=== PATIENT | male | born 1980 | race African-American/Black ===

== ENCOUNTER 2017-12-09 10:35 | Emergency (ER) | payer BC ==
[~2017-12-09] VITALS: Ht 190.5 cm; Wt 99.2 kg
[~2017-12-09 10:35] MED LIST: MOTRIN600 MG PO
[2017-12-09] MEDS ORDERED: KEFLEX500 MG PO (11:41)
[2017-12-09] MEDS ORDERED: ELIQUIS5 MG PO (13:03)
[2017-12-09 13:20] VITALS: BP 138/90
[2017-12-09] MEDS ORDERED: TRAMADOL HCL50 MG PO (13:20)
== END 2017-12-09 13:22 | disposition home or self-care (01) ==
LOC: EME 10:35
DX: I82.412 Acute embolism and thrombosis of left femoral vein (principal); I82.432 Acute embolism and thrombosis of left popliteal vein; I82.442 Acute embolism and thrombosis of left tibial vein
CPT/HCPCS: 93971; 99281; 99284